=== PATIENT | male | born 1990 | race Caucasian/White ===

== ENCOUNTER 2019-09-22 | Emergency (ER) | payer SELFPAY ==
[2019-09-22] MEDS ORDERED: TRAMADOL HYDROC50 M1 (01:36)
[2019-09-22] MEDS ORDERED: SOMA350 MG PO (01:37)
[2019-09-22 01:56] LABS: URINE BILIRUBIN - DIPSTICK NEGATIVE (NEGATIVE); URINE BLOOD DIPSTICK NEGATIVE (NEGATIVE); URINE COLOR YELLOW; URINE GLUCOSE - DIPSTICK NEGATIVE (NEGATIVE); URINE KETONE NEGATIVE (NEGATIVE); URINE LEUK ESTERASE NEGATIVE (NEGATIVE); URINE NITRITE - DIPSTICK NEGATIVE (Negative); URINE PH 7.5 (4.5-8.0); URINE PROTEIN - DIPSTICK NEGATIVE (NEG-TRACE); URINE UROBILINOGEN - DIPSTICK 0.2 E.U./dL (0.2)
[2019-09-22 01:57] LABS: HEMOGLOBIN 15.7 g/dl (14.0-18.0); IMMATURE GRANULOCYTES 0.4 % (0.0-5.0); MEAN CELL VOLUME 83.5 fL CALC (80.0-100.0); MEAN CORPUSCULAR HGB 29.1 pG CALC (26.0-32.0); MEAN CORPUSCULAR HGB CONC 34.9 g/dL CAL (32.0-36.0); NEUT# 7.5 thou/uL (1.82-7.42); RED BLOOD COUNT 5.39 mill/uL (4.70-6.10)
[2019-09-22 02:05] LABS: BARBITURATES NEGATIVE (NEGATIVE); COCAINE NEGATIVE (NEGATIVE); METHADONE NEGATIVE (NEGATIVE); OXCYCODONE NEGATIVE (NEGATIVE); TETRAHYDROCANNABIONOL POSITIVE (NEGATIVE); TRICYLIC ANTIDEPRESSANTS NEGATIVE (NEGATIVE)
[2019-09-22 02:15] LABS: ALBUMIN 4.4 g/dL (3.2-5.0); ANION GAP 11 (6-22 (CALC)); BUN 12 mg/dL (9-20); BUN/CREATININE RATIO 16 (12-20 (CALC)); CARBON DIOXIDE 28 mmol/l (22-30); CHLORIDE 104 mmol/l (95-108); CREATININE 0.8 mg/dL (0.7-1.3); GFR > 60 ML/MIN (>=60 (CALC)); GFR FOR AFR.AMER. > 60 ML/MIN (>=60 (CALC)); POTASSIUM 4.1 mmol/l (3.5-5.1); SGOT/AST 25 u/l (17-59); SODIUM 138 mmol/l (137-146)
[2019-09-22 02:16] LABS: D-DIMER 0.2 mg/L (0.19-0.60); PROTHROMBIN TIME 10.1 SECONDS (9.0-12.5)
[2019-09-22 02:27] LABS: ALKALINE PHOSPHATASE 57 u/l (38-126); BILIRUBIN, TOTAL 0.3 mg/dL (0.0-1.4); MYOGLOBIN 16 ng/mL (0 - 121); TOTAL PROTEIN 7.1 g/dL (6.3-8.2)
--- NOTE | 2019-09-24 13:30 | NUR ---
COVID results called to patient with confirmation of name and . Encourage stay safe - stay home recommendations, frequent handwashing/sanitizing.
== END 2019-09-22 04:53 | disposition home or self-care (01) | DRG 203 ==
PROVIDERS: Emergency Medicine
DX: J40 Bronchitis, not specified as acute or chronic (principal); F41.9 Anxiety disorder, unspecified; Z20.828 Contact with and (suspected) exposure to other viral communicable diseases